=== PATIENT | male | born 1945 | race Caucasian/White ===

== ENCOUNTER 2018-04-01 13:22 | Outpatient (CLI) | payer MEDICARE, OTHER | END 2018-04-01 13:23 | disposition home or self-care (01) | LOC: ULT 13:22 | PROVIDERS: ATTEND Family Medicine | DX: M79.89 Other specified soft tissue disorders (principal); I08.3 Combined rheumatic disorders of mitral, aortic and tricuspid valves; I77.810 Thoracic aortic ectasia | CPT/HCPCS: 93306 ==

== ENCOUNTER 2018-06-15 07:57 | Outpatient (CLI) | payer MEDICARE, OTHER ==
[2018-06-15 08:35] LABS: Estimated GFR-MDRD - POC Greater than 90
[2018-06-15] MEDS ORDERED: Iopamidol 370 76% 100 ML VIAL ONE (09:00)
--- NOTE | 2018-06-15 11:45 | CT ---
CT ABDOMEN WITH AND WITHOUT IV CONTRAST: CT PELVIS WITH AND WITHOUT IV CONTRAST: 06/15/2018 HISTORY: Hematuria. History of pancreatic and renal cyst. COMPARISON: CTA abdomen on 11/05/2016. CT abdomen and pelvis on 05/24/2015. FINDINGS: There is mild dependent bibasilar atelectasis and/or scarring present. Again noted is a hiatal herni a. Multiple hypodense bilateral renal lesions are seen, the majority of which demonstrate fluid atte nuation and are consistent with multiple bilateral renal cysts. The largest cyst is seen within the superior pole left kidney, measuring 4.9 cm, with the largest cyst seen in the superior pole right ki dney, measuring 2.2 cm. There is an increased density exophytic lesion seen in the superior pole lef t kidney, measuring 2.4 cm, which was also seen on prior exam. This demonstrates similar attenuation coefficient on post contrast image, likely related to a hyperdense Bosniak type II renal cystic lesi on. There is a stable, nonobstructing, 3 to 4 mm calculus in the mid portion of the right kidney. No add itional renal or ureteral calculi are seen bilaterally, and there is no evidence of hydronephrosis. No enhancing renal mass is visualized. A subcentimeter, bpw-[id number]-uv-characterize, hypodense lesion is again seen in the posterior segment o f the right hepatic lobe. Again noted is suggestion of a small, approximately 1.1 cm, hypodense, cystic structure in the tail o f the pancreas. This overall stable in appearance and size compared to the study in 2015. The pancr eas otherwise has a normal appearance with atrophy of the majority of the pancreas, similar to prior studies. The bilateral adrenal glands and the urinary bladder demonstrate a normal CT appearance. Vascular calcifications are again seen in the abdominal aorta and involving the iliac arteries. A fat-containing left inguinal canal is present. There is colonic diverticulosis. Opacified small bowel has a normal appearance. Post surgical and degenerative changes are again seen within the lumbar spine, similar to prior studi es, with low density material seen posterior to the level of the laminectomy defects, probably relate d to an area of scarring. No free fluid, fluid collection, or lymphadenopathy is seen in the abdomen or pelvis. IMPRESSION: 1. Stable, nonobstructing right renal calculus. 2. Stable multiple bilateral renal cysts with Bosniak type II renal cystic lesion in the superior po le left kidney. No enhancing renal mass is appreciated. 3. No ureteral calculus or hydronephrosis is present. 4. Again noted is suggestion of a small, approximately 11 mm, hypodense, cystic structure in the marta l of the pancreas, stable in size and appearance compared to the study in 2015. 5. Subcentimeter, sdt-[id number]-[id number]-characterize, hypodense lesion in the right hepatic lobe. 6. Colonic diverticulosis. 7. Hiatal hernia. POS: NIKKY
== END 2018-06-15 07:58 | disposition home or self-care (01) ==
LOC: SCSCT 07:57
PROVIDERS: ATTEND Internal Medicine Gastroenterology
DX: K86.2 Cyst of pancreas (principal); N28.1 Cyst of kidney, acquired; N20.0 Calculus of kidney; K76.9 Liver disease, unspecified; K44.9 Diaphragmatic hernia without obstruction or gangrene; K57.30 Diverticulosis of large intestine without perforation or abscess without bleeding
CPT/HCPCS: 74178; 82565

== ENCOUNTER 2018-07-20 09:15 | Outpatient (CLI) | payer MEDICARE, OTHER ==
--- NOTE | 2018-07-20 14:14 | HP ---
HISTORY OF PRESENT ILLNESS: Mr. Franklyn Childs junior is a very pleasant 73-year-old gentleman who [facility] for evaluation of an ulceration of the left lateral ankle. The patient states that in May of 2017 while cleaning out his garden, he was bitten by a brown recluse spider. He states that he was treated with antibiotics and the wound healed completely. He states that in April of 2018 he developed a lesion in the same area with no history of an insect or spider bite. He states that he was seen by Dr. Macias and treated with Silvadene cream and antibiotics. He states that the wound decreased in size to that of a "pinhead." The patient states that at the beginning of last week, he developed pain of his left lateral ankle followed two days later by warmth in the area. He states that one week ago he was seen by Dr. Macias and at this time, referred to the [facility] for further evaluation and treatment. The patient's medical history significant for venous ablation on the right and on the left by Dr. Tapia. The patient states that he has open toe compression garments that he has been unable to utilize because of a tourniquet effect over the foot and lower leg. PAST MEDICAL HISTORY: 1. Hypertension. 2. Atrial fibrillation. 3. Osteoarthritis. 4. 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 5. Parkinson disease. 6. Benign prostatic hypertrophy. 7. Glaucoma. 8. Melanoma in situ of the back. 9. Coronary artery disease. PAST SURGICAL HISTORY: 1. Coronary artery bypass grafting x2. 2. Appendectomy, remote. 3. Tonsillectomy, remote. 4. Bilateral knee replacement. 5. Herniorrhaphy. 6. Laminectomy/spinal fusion in 2011. 7. Left shoulder surgery. MEDICATIONS: 1. Clonazepam. 2. Finasteride. 3. Azilect. 4. Tamsulosin. 5. Lasix. 6. Eliquis. 7. Aspirin 81 mg. 8. Piroxicam. 9. Mirapex. 10. Carbidopa/levodopa. ALLERGIES: DEMEROL AND OXYCONTIN. SOCIAL HISTORY: Social history is negative for tobacco or EtOH use. FAMILY HISTORY: Family history is significant for coronary artery disease. The patient's father was diagnosed with coronary artery disease. Family history is also significant for diabetes mellitus. The patient's father and brother were both diagnosed with diabetes mellitus. PHYSICAL EXAMINATION: VITAL SIGNS: Temperature 97.4, pulse 76, respirations 20, and blood pressure 123/76. GENERAL: A 73-year-old gentleman sitting on chair in examination room, in no acute distress. HEENT: Normocephalic and atraumatic. NECK: No nuchal rigidity. CHEST: Clear to auscultation. CV: Regular rate and rhythm. ABDOMEN: Soft. EXTREMITIES: A wound of the left lateral ankle is present which measures approximately 0.5 x 0.2 cm. The wound is covered in its entirety by dry, stable eschar. No serous or purulent drainage is associated with the wound. No cellulitis of the left foot or lower leg is appreciated. No maceration of the skin of the left foot or lower leg is appreciated. A dorsalis pedis pulse is easily palpable on the left. Edema of the left foot and lower leg is present on today's exam. ASSESSMENT AND PLAN: 1. Chronic venous hypertension with ulcer and inflammation. No open wound is present on exam today. The patient declines the application of the tvCompass Coban 2 Layer Compression System. I will see Mr. Childs again on 08/18/2018. The patient has been instructed to continue to utilize ROCKY hose. He is to bring his compression garments with him to his next visit on 08/18/2018. 2. Lymphedema tarda. Arrangements will be made for the initiation of in-home lymphedema therapy with a pneumatic pump. The patient understands and is in agreement with the preceding treatment plan. 3. Hypertension. 4. Atrial fibrillation. 5. Osteoarthritis. 6. Multiple squamous cell and basal cell carcinomas. 7. Parkinson disease. 8. Benign prostatic hypertrophy. 9. Glaucoma. 10. Melanoma in situ of the back. 11. Coronary artery disease. Job ID: [id number]
== END 2018-07-20 09:16 | disposition home or self-care (01) ==
LOC: WCC 09:15
PROVIDERS: ATTEND Family Medicine
DX: I87.332 Chronic venous hypertension (idiopathic) with ulcer and inflammation of left lower extremity (principal); L97.329 Non-pressure chronic ulcer of left ankle with unspecified severity; I89.0 Lymphedema, not elsewhere classified; I10 Essential (primary) hypertension; I48.91 Unspecified atrial fibrillation; M19.90 Unspecified osteoarthritis, unspecified site; G20 Parkinson's disease; H40.9 Unspecified glaucoma; N40.0 Benign prostatic hyperplasia without lower urinary tract symptoms; I25.10 Atherosclerotic heart disease of native coronary artery without angina pectoris; C44.91 Basal cell carcinoma of skin, unspecified; D03.9 Melanoma in situ, unspecified
CPT/HCPCS: 99203; G0463

== ENCOUNTER 2018-08-18 14:17 | Outpatient (CLI) | payer MEDICARE, OTHER ==
--- NOTE | 2018-08-18 09:57 | PRG ---
DATE OF SERVICE: 08/18/2018 HISTORY: Mr. Franklyn Childs junior is a very pleasant 73-year-old gentleman, who presents to the [facility] for evaluation of an ulceration of the left lateral ankle. The patient previously stated that in May of 2017, while cleaning out his garden, he was bitten by a brown recluse spider. He stated that he was treated with antibiotics and the wound healed completely. He stated that in April of 2018, he developed a lesion in the same area with no history of an insect or spider bite. He stated that he was seen by Dr. Macias and treated with Silvadene cream and antibiotics. He stated that the wound decreased in size to that of a "pinhead." The patient stated that just prior to being seen in the [facility], he developed pain of his left lateral ankle followed by warmth in the area 2 days later. He stated that 1 week prior to his initial presentation to the [facility], he was seen by Dr. Macias and at this time, referred to the [facility] for further evaluation and treatment. The patient's medical history is significant for venous ablation on the right and on the left by Dr. Tapia. The patient stated that he had been prescribed open toe compression garments that he was unable to utilize because of a tourniquet effect over the foot and lower leg. PHYSICAL EXAMINATION: VITAL SIGNS: Temperature 97.4, pulse 77, respirations 16, blood pressure 138/67. EXTREMITIES: The wound over the left lateral ankle has healed completely. Edema of the right and left lower extremities is present on exam today. Circumferences of the right lower extremity at the ankle, calf, and knee are 27 cm, 35 cm, and 27 cm. Circumferences of the left lower extremity at the ankle, calf, and knee are 29 cm, 34.5 cm, and 27 cm. ASSESSMENT AND PLAN: 1. Lymphedema tarda. The patient has worn compression garments and has been elevating his legs for over 4 weeks with no improvement in his lymphedema. Arrangements will therefore continue for the initiation of in-home lymphedema therapy with a pneumatic pump. 2. Chronic venous hypertension with ulcer and inflammation, as stated above, the wound of the left lateral ankle has healed completely. 3. Hypertension. 4. Atrial fibrillation. 5. Osteoarthritis. 6. Multiple squamous cell and basal cell carcinomas. 7. Parkinson disease. 8. Benign prostatic hypertrophy. 9. Glaucoma. 10. Melanoma in situ of the back. 11. Coronary artery disease. Job ID: [id number]
== END 2018-08-18 14:18 | disposition home or self-care (01) ==
LOC: WCC 14:17
PROVIDERS: ATTEND Family Medicine
DX: I87.332 Chronic venous hypertension (idiopathic) with ulcer and inflammation of left lower extremity (principal); L97.329 Non-pressure chronic ulcer of left ankle with unspecified severity; I89.0 Lymphedema, not elsewhere classified; I48.91 Unspecified atrial fibrillation; M19.90 Unspecified osteoarthritis, unspecified site; G20 Parkinson's disease; I25.10 Atherosclerotic heart disease of native coronary artery without angina pectoris; N40.0 Benign prostatic hyperplasia without lower urinary tract symptoms; H40.9 Unspecified glaucoma; D03.59 Melanoma in situ of other part of trunk; C44.99 Other specified malignant neoplasm of skin, unspecified
CPT/HCPCS: 97139; G0463; 99212

== ENCOUNTER 2018-11-15 17:43 | Inpatient (IN) | payer MEDICARE, OTHER ==
[2018-11-15 18:15] LABS: #Basophils 0.1 thou/uL (0.0-0.2); #Eosinphils 0.1 thou/uL (0.0-0.7); #Lymphocytes 1.2 thou/uL (1.20-3.40); #Monocytes 0.4 thou/uL (0.11-0.59); %Basophils 0.5 % (0.0-1.0); %Eosinophils 1.1 % (0.0-10.0); %Monocytes 3.4 % (0.0-10.0); Hemoglobin 16.6 g/dL (14.0-18.0); Mean Corpuscular HGB CONC 33.5 g/dL (32.0-36.0); Mean Corpuscular Hemoglobin 32.6 pg (27.0-31.0); Mean Corpuscular Volume 97.4 fL (78.0-98.0); Mean Platelet Volume 8.2 fL (7.4-10.4); Platelet Count 162 thou/uL (130-400); RBC Distribution Width 12.2 % (11.5-14.5); White Blood Cell (WBC) Count 11.8 thou/uL (4.8-10.8)
[2018-11-15] MEDS ORDERED: Aspirin Chewable 81 MG TAB ONE (18:15)
[2018-11-15 18:28] LABS: ALT (SGPT) 108 U/L (8-55); AST (SGOT) 390 U/L (5-34); Albumin 4.5 g/dL (3.4-4.8); Alkaline Phosphatase 213 U/L (40-150); Anion Gap 15 mmol/L (10-20); BUN (Urea Nitrogen) 27 mg/dL (8.4-25.7); Bilirubin, Total 2.5 mg/dL (0.2-1.2); Calc. Creatinine Clearance 0 mL/min (70-130); Calcium 9.7 mg/dL (7.8-10.44); Carbon Dioxide 25 mmol/L (23-31); Chloride 104 mmol/L (98-107); Estimated GFR-MDRD 79; Globulin 3.2 g/dL (2.4-3.5); Glucose 130 mg/dL (83-110); Lipase 44 U/L (8-78); Protein, Total 7.7 g/dL (5.8-8.1); Sodium 140 mmol/L (136-145)
[2018-11-15] MEDS ORDERED: Morphine 4 MG/ML VIAL ONE (18:53)
[2018-11-15] MEDS ORDERED: Ondansetron PF 4 MG/2 ML Vial ONE (18:53)
--- NOTE | 2018-11-15 19:02 | RAD ---
EXAM: CHEST ONE VIEW: 11/15/18 HISTORY: Chest pain. Cardiomegaly. Postop midline sternotomy. No confluent pneumonia or overt edema. IMPRESSION: Cardiomegaly. Postop midline sternotomy. Atherosclerosis of the aorta with ectasia. POS: OFF
[2018-11-15 19:47] LABS: Bilirubin Negative (Negative); Blood, Urine Negative (Negative); Clarity Clear (Clear); Glucose, Urine (Dipstick) Negative (Negative); Leukocyte Negative (Negative); Nitrite Negative (Negative); Protein, Urine (Dipstick) Negative (Neg-Trace); Specific Gravity, Urine 1.015 (1.005-1.030)
--- NOTE | 2018-11-15 20:34 | ULT ---
RIGHT UPPER QUADRANT ULTRASOUND: 11/15/18 HISTORY: Epigastric pain and elevated LFTs. Chest pain. The liver echogenicity is slightly coarse. The gallbladder wall is minimally thickened at 0.5 cm. The re is evidence for gallbladder sludge without evidence for overt gallstone. Negative Bejarano's sign. S everal small right renal cysts. Common bile duct 0.5 cm. Pancreas is mostly obscured. No intrahepatic ductal dilatation. IMPRESSION: Slightly coarse liver echogenicity. Gallbladder sludge with thickened gallbladder wall without overt gallstones. Negative Bejarano's sign. If patient has persistent or worsening symptoms referable to the gallbladder, nonemergent follow-up hepatobiliary nuclear medicine scan might give additional informa tion. POS: RRE
--- NOTE | 2018-11-15 20:52 | CT ---
NONCONTRAST CT ABDOMEN AND PELVIS: 11/15/18 HISTORY: Chest pain and abdominal pain. COMPARISON: 06/15/18. FINDINGS: Mild chronic bibasilar lung changes are present. No pleural effusion is noted. The heart remains enlarged. Vascular calcifications are seen in the abdominal aorta and involving the iliac arteries. 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 There is focal ectasia of the infrarenal abdominal aorta also similar to prior exam. A hiatal hernia is again present with the fundus of the stomach above the level of the hemidiaphragms . There are multiple hypodense and hyperdense renal cystic lesions seen, overall similar to the prior s tudy, likely related to combination of renal cysts and Bosniak type II renal cystic lesions. No renal or ureteral calculi are seen bilaterally. Urinary bladder is incompletely distended but otherwise gr ossly normal in appearance. The liver, spleen, and bilateral adrenal glands demonstrate a grossly normal, nonenhanced CT appearan ce. The pancreas is fatty replaced. Again noted is a small hypodense lesion in the tail of the pancreas s table when compared to a study in 2017 as well. Colonic diverticulosis is present. Small amount of retained fecal material seen throughout the colon. Postsurgical and degenerative changes of the lumbar spine are again seen. Low density material again seen posterior to the level of the laminectomy defects which could be related to areas of scarring and/or possibly fluid, but this is similar dating back to study in 2017. Lack of intravenous contrast does limit sensitivity for evaluation of the parenchymal organs; however , there has been no significant interval change compared to prior exams. IMPRESSION: 1. No acute findings are seen on this nonenhanced CT scan of the abdomen and pelvis. 2. Cardiomegaly. 3. Stable hiatal hernia. 4. 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 5. Stable hypodense and hyperdense Bosniak type II cystic renal lesions in each kidney. 6. Stable hypodense lesion pancreatic tail. POS: OFF
[2018-11-15] MEDS ORDERED: hydrALAZINE 20 MG/ML VIAL SLOW IVP PRN (21:58)
[2018-11-15] MEDS ORDERED: Morphine 4 MG/ML VIAL SLOW IVP PRN (21:58)
[2018-11-15] MEDS ORDERED: Ondansetron PF 4 MG/2 ML Vial IVP PRN (21:58)
[2018-11-15] MEDS ORDERED: Morphine 2 MG/ML SYRINGE SLOW IVP PRN (21:58)
[2018-11-15] MEDS ORDERED: Ondansetron ODT 4 MG TAB PO PRN (21:58)
[2018-11-15] MEDS ORDERED: Acetaminophen 1,000 MG in Premix Bag 1 BAG IVPB PRN (22:01)
[2018-11-15] MEDS ORDERED: Ketorolac Tromethamine 30 MG/ML VIAL IVP PRN (22:01)
[2018-11-15] MEDS ORDERED: traMADol HCl 50 MG TAB PO PRN (22:03)
[2018-11-15] MEDS ORDERED: Lactated Ringer's 1,000 ML IV SCH (22:15)
[2018-11-15] MEDS ORDERED: Dextrose 50% Abboject 50 ML SYRINGE SLOW IVP PRN (22:29)
[2018-11-15] MEDS ORDERED: Dextrose 5% in Water 1,000 ML IV PRN (22:29)
[2018-11-15] MEDS ORDERED: HumaLOG 300 UNITS/3 ML VIAL SC PRN (22:29)
[2018-11-15 22:58] VITALS: BMI 28.8
[2018-11-15] MEDS ORDERED: Lisinopril 10 MG TAB PO SCH (23:15)
[2018-11-16] MEDS ORDERED: Tamsulosin HCl 0.4 MG CAP PO SCH ×2 (00:15→21:00)
[2018-11-16] MEDS ORDERED: Carbidopa/Levodopa 25-100 mg Tablet PO SCH (00:15)
[2018-11-16] MEDS ORDERED: Famotidine 20 MG TAB PO SCH (00:15)
--- NOTE | 2018-11-16 00:49 | HP ---
HISTORY OF PRESENT ILLNESS: Franklyn Kohler Junior is a 73-year-old male patient, seen in [facility] evaluated by Dr. Bo. The patient presented complaining of pain in his left lower abdomen, localizing to his central abdomen and later had some discomfort in his upper right abdomen. He states he received morphine in the emergency room at [facility], and by the time he received the morphine, the pain was almost gone. He had a similar episode several months ago. He had a colonoscopy in 2011 he recalls. He is followed by Dr. Tapia for atrial fibrillation. He has had a coronary artery bypass grafting, 4 vessel in 1993, saw Dr. Tapia's nurse practitioner last week and saw Dr. Tapia in May. He recalls having an echocardiogram in May. He denies any cardiac symptomatology. He has atrial fibrillation, rate controlled. He has never had an ablation. ALLERGIES: NONE. SOCIAL HISTORY: Tobacco, none. Alcohol, none. MEDICATIONS: 1. Prilosec daily. 2. Feldene 20 mg a day. 3. Lisinopril 10 mg a day. 4. Eliquis 5 mg a day, last dose this morning. 5. Lipitor 40 mg a day. 6. Flomax 0.4 mg a day. 7. Finasteride 5 mg a day. 8. Carbidopa/levodopa 25/100 mg a day. 9. Azilect 1 mg a day. 10. Lasix 40 mg a day. 11. Cosopt ophthalmic drops. 12. once a day, 0.25 mg oral. 13. Zetia 10 mg a day. PAST SURGICAL HISTORY: Coronary artery bypass graft in 1993. He saw Dr[address] Tapia in May 2018. He had an echocardiogram last year. He does not recall having a recent cardiac stress test. He saw Dr. Tapia's nurse practitioner a week ago, had an echocardiogram last year. He was told a week ago that everything seemed to be fine. He is asymptomatic from a cardiac standpoint. Total knee replacement, bilateral left shoulder surgery, right inguinal hernia repair, appendectomy, tonsillectomy, colonoscopy tells in 2010. PAST MEDICAL HISTORY: Parkinson's, type 2 diabetes mellitus, hypertension, elevated cholesterol, coronary artery disease, atrial fibrillation on Eliquis. REVIEW OF SYSTEMS: Ten-point noncontributory except as noted above. PHYSICAL EXAMINATION: VITAL SIGNS: Weight 99 kg, blood pressure 124/83, respirations 22. HEAD, EARS, EYES, NOSE, AND THROAT: Unremarkable. LUNGS: Clear to auscultation. CARDIAC: Irregularly irregular, controlled rate. ABDOMEN: Soft, nontender, obese, and protuberant. No masses. No hernias. EXTREMITIES: Unremarkable. No ankle edema. LABORATORY DATA: Sodium 140, potassium 4.0, BUN 27, creatinine 0.94, bilirubin 2.5, AST 390, ALT 108, alkaline phosphatase 213. The patient's transaminases are elevated today and this is unusual for him, in the past they have not been elevated. His bilirubin, however, has been elevated years past and never to the level of 2.5, but it has been elevated in the past to 1.6, 1.8, 1.4. Coagulation studies; D-dimer normal. ASSESSMENT AND PLAN: 1. Abdominal pain, now resolved. He is nontender and nonpainful. At this point, I have discussed with him the fact that he has gallbladder sludge and his liver chemistries are elevated, but his bile ducts are of normal caliber. I have told him that it would be reasonable to consider laparoscopic cholecystectomy, but his symptoms are somewhat atypical and etiology of his liver function tests elevated is uncertain. At this time, he wishes to avoid surgery. I do not think he needs intravenous antibiotics. We will resume his diabetic diet, observe him tonight. Recheck his liver function test tomorrow. I asked the medical services to see him. If he does well overnight and he is not having problems, he could be discharged home in the morning. 2. Diabetes mellitus. 3. Hypertension. 4. Elevated cholesterol. 5. Coronary artery disease. 6. Atrial fibrillation, on Eliquis. We will hold his Eliquis for now, but resume it if he does well overnight. If he does go home tomorrow and he develops problems as an outpatient, likely could visit my office and we could arrange cholecystectomy at a later date. Job ID: [id number]
[2018-11-16 06:24] LABS: #Eosinphils 0.3 thou/uL (0.0-0.7); #Lymphocytes 1.8 thou/uL (1.20-3.40); #Monocytes 0.9 thou/uL (0.11-0.59); #Neutrophils 13.5 thou/uL (1.40-6.50); %Basophils 0.3 % (0.0-1.0); %Eosinophils 1.7 % (0.0-10.0); %Lymphocytes 10.8 % (21.0-51.0); %Monocytes 5.6 % (0.0-10.0); %Neutrophils 81.6 % (42.0-75.0); Mean Corpuscular HGB CONC 33.7 g/dL (32.0-36.0); Mean Corpuscular Hemoglobin 33.5 pg (27.0-31.0); Mean Corpuscular Volume 99.5 fL (78.0-98.0); Mean Platelet Volume 7.8 fL (7.4-10.4); Platelet Count 150 thou/uL (130-400); RBC Distribution Width 12.1 % (11.5-14.5); Red Blood Cell (RBC) Count 4.47 mill/uL (4.70-6.10); White Blood Cell (WBC) Count 16.5 thou/uL (4.8-10.8)
[2018-11-16 06:45] LABS: ALT (SGPT) 43 U/L (8-55); AST (SGOT) 265 U/L (5-34); Albumin 3.7 g/dL (3.4-4.8); Alkaline Phosphatase 205 U/L (40-150); Anion Gap 12 mmol/L (10-20); BUN (Urea Nitrogen) 22 mg/dL (8.4-25.7); Bilirubin, Total 4.7 mg/dL (0.2-1.2); Calc. Creatinine Clearance 117 mL/min (70-130); Calcium 9.1 mg/dL (7.8-10.44); Carbon Dioxide 24 mmol/L (23-31); Chloride 106 mmol/L (98-107); Estimated GFR-MDRD Greater than 90; Globulin 2.5 g/dL (2.4-3.5); Glucose 103 mg/dL (83-110); Potassium 3.7 mmol/L (3.5-5.1); Protein, Total 6.2 g/dL (5.8-8.1); Sodium 138 mmol/L (136-145)
[2018-11-16] MEDS ORDERED: Furosemide 40 MG TAB PO SCH (07:30)
[2018-11-16] MEDS: Famotidine 20 MG TAB PO SCH ×2 (08:00→20:52)
[2018-11-16] MEDS: metFORMIN 500 MG TAB PO SCH ×2 (08:00→17:08)
[2018-11-16] MEDS: Polyethylene Glycol 3350 17 GM Packet PO SCH (08:01)
[2018-11-16] MEDS: Pantoprazole 40 MG VIAL IVP SCH (08:01)
[2018-11-16] MEDS: Carbidopa/Levodopa 25-100 mg Tablet PO SCH ×4 (08:01→20:51)
[2018-11-16] MEDS ORDERED: Ezetimibe 10 MG TAB PO SCH (09:00)
--- NOTE | 2018-11-16 10:38 | PRG ---
DATE OF SERVICE: 11/16/2018 SUBJECTIVE: Mr. Childs did not receive his Klonopin last night, did not sleep well. In addition, he complains of epigastric pain after eating breakfast this morning. He is slightly tender in the epigastrium and right upper quadrant. His bilirubin is slightly more elevated to 4.7, up from 2.5. His AST is diminished to 265, ALT diminished to 43. His white blood cell count, however, has increased to 16.5. PHYSICAL EXAMINATION: LUNGS: Clear to auscultation. CARDIAC: Irregularly irregular, controlled rate. ABDOMEN: Obese, soft. Tenderness in the epigastrium and right upper quadrant with mild guarding. EXTREMITIES: Unremarkable. ASSESSMENT AND PLAN: 1. Gallbladder sludge, cholecystitis. Because of his increased pain after eating and has tenderness and elevated liver function tests, I would recommend laparoscopic video cholecystectomy tomorrow. We would place him back on Levaquin. Ask Cardiology to see him for preoperative evaluation with his known coronary artery disease. I think he is stable for laparoscopic cholecystectomy, but he has seen Dr. Tapia recently and we will get his opinion. The patient understands the risks, benefits, and consents. 2. Diabetes mellitus. 3. Hypertension. 4. Obesity. 5. Atrial fibrillation, controlled rate. Job ID: [id number]
--- NOTE | 2018-11-16 20:16 | CON ---
DATE OF CONSULTATION: 11/16/2018 PRIMARY ASSISTANT GOLF COURSE SUPERINTENDENT: Jarad Tapia MD REASON FOR CONSULTATION: Preoperative evaluation. HISTORY OF PRESENT ILLNESS: Mr. Childs is a pleasant 73-year-old white gentleman, who comes to the hospital for abdominal pain. He was evaluated and diagnosed with acute cholecystitis. Initially, he was thought to be able to be treated medically as he is on Eliquis for stroke prophylaxis for AFib. He was started on antibiotics, but continues to be very symptomatic with any meal. He gets abdominal pain. His LFTs are increasing as well as his white count continues to increase. Secondary to this, decision was made to be more aggressive and just do a laparoscopic cholecystectomy. Cardiology is being consulted for preoperative evaluation as he has a history of coronary artery disease. He denies any chest pain, tightness, pressure. No shortness of breath. He has been followed by Dr. Tapia for many years. He had his bypass in 1993. He has not had any problems since. His last echocardiogram was in March of last year. Less than a year ago and he had a normal EF. He has not felt any significant change in his symptoms as far as the cardiac symptoms are concerned. PAST MEDICAL HISTORY: 1. Coronary artery disease, status post CABG in 1993. 2. Hypertension. 3. Parkinson disease. 4. Hyperlipidemia. 5. GERD. 6. Chronic atrial fibrillation. 7. History of skin cancer. 8. Glaucoma. PAST SURGICAL HISTORY: 1. Left knee surgery. 2. Bilateral total knee replacement. 3. Umbilical hernia repair. 4. Left shoulder surgery. 5. Glaucoma procedures. 6. Tonsillectomy. 7. Appendectomy. 8. Back surgery x2. 9. RFA of the left SSV and RFA of the right SSV. OUTPATIENT MEDICATIONS: Include: 1. Clonazepam 2 mg q.h.s. 2. Tamsulosin 0.4 b.i.d. 3. Azilect 1 mg a day. 4. Pramipexole. 5. Piroxicam. 6. Omeprazole 40 mg a day. 7. Lisinopril 10 mg a day. 8. Furosemide 40 mg a day. 9. Finasteride. 10. Zetia 10 mg a day. 11. Dorzolamide ophthalmic solution. 12. Carbidopa/levodopa. 13. Lipitor 40 mg a day. 14. Aspirin 81 a day. 15. Eliquis 5 mg b.i.d., last dose was yesterday evening. ALLERGIES: MEPERIDINE AND OXYCODONE. FAMILY HISTORY: Noncontributory. SOCIAL HISTORY: No alcohol, tobacco, or drugs. REVIEW OF SYSTEMS: A 12-point review of systems was done and was all negative unless stated in history of present illness. PHYSICAL EXAMINATION: VITAL SIGNS: Temperature 98.0, pulse 86, respiratory rate 16, saturation 98% on room air, and blood pressure 155/90. GENERAL: Awake, alert, and oriented x3, in no distress. HEENT: Normocephalic and atraumatic. NECK: Supple. LUNGS: Clear. CARDIOVASCULAR: S1 and S2. No S3 or S4. No murmurs. ABDOMEN: Soft. Positive bowel sounds. EXTREMITIES: No edema. SKIN: Warm and dry. LABORATORY DATA: Laboratory work was reviewed. CBC with a white count of 11, up to 16; hemoglobin of 16; hematocrit of 49; and platelet count of 162. Coags, D-dimer is 0.33. Chemistries unremarkable except for total bilirubin of 4.7, which is coming up from 2.5; AST was 265; ALT is normal; alkaline phosphatase at 205. BNP was 104. Albumin of 3.7. Lipase was normal at 44. UA is 2.0 urobilinogen, otherwise negative. EKG was unremarkable. Echocardiogram done in March 2018 showed an EF of 50% to 55% with mild aortic regurgitation, mild MR, mild TR, mild PI, and mildly dilated aortic root. ASSESSMENT AND PLAN: 1. Preoperative evaluation. Mr. Childs is completely asymptomatic from the cardiac perspective. He has been followed by many years by Dr. Tapia and has remained stable symptom valentin. Currently, he would be intermediate risk for an intermediate risk procedure. He is aware that this does not guarantee that he will not have an myocardial infarction during the procedure. However, there are no other interventions that I would think would be needed to optimize him before surgery. He is also having worsening LFTs and worsening symptoms, so his gallbladder probably needs to come out sooner rather than later. I would think that he is a suitable candidate for procedure at this time. He has already been off Eliquis for 24 hours. If the surgery is done tomorrow, he will be out of Eliquis about 36 hours, which should be reasonable for this type of surgery. 2. Would recommend restarting the Eliquis after surgery once it is deemed safe from the surgical perspective. Thank you for letting me to participate in the care of your patient. Dr. Tapia, his primary gl accountant, will follow up in the morning. Job ID: [id number]
[2018-11-16] MEDS: clonazePAM 1 MG TAB PO SCH (20:52)
[2018-11-16] MEDS: DorzolamidE/Timolol 2%/0.5% Ophth Soln 10 ml Bottle EA EYE SCH (20:52)
[2018-11-16] MEDS: Tamsulosin HCl 0.4 MG CAP PO SCH (20:53)
[2018-11-16] MEDS: Pramipexole Di-HCl 0.25 MG TAB PO SCH (20:53)
[2018-11-16] MEDS ORDERED: Enoxaparin Sodium 40 MG/0.4 ML SYRINGE SC SCH (21:00)
[2018-11-16] MEDS: metroNIDAZOLE 500 MG in Premix Bag 1 BAG IVPB SCH (21:30)
[2018-11-17] MEDS: metroNIDAZOLE 500 MG in Premix Bag 1 BAG IVPB SCH ×3 (05:04→22:07)
[2018-11-17] MEDS ORDERED: Fentanyl 100 MCG/2 ML VIAL ONE (06:20)
[2018-11-17] MEDS ORDERED: Lidocaine 2% Jelly 5 ML TUBE ONE (06:21)
[2018-11-17] MEDS ORDERED: Bupivacaine HCl 0.5%/Epinephrine 1:200,000/PF 30 ml Vial ONE (06:36)
[2018-11-17] MEDS ORDERED: Iothalamate Meglumine 60% 50 ML VIAL FS ONE ×2 (06:47→08:23)
[2018-11-17] MEDS ORDERED: Levofloxacin 500 mg/D5W 100 ml Premix Bag ONE (07:23)
[2018-11-17] MEDS ORDERED: Indomethacin 50 MG SUPP ONE (08:23)
[2018-11-17] MEDS ORDERED: Ibuprofen 600 MG TAB PO PRN (08:27)
[2018-11-17] MEDS ORDERED: traMADol HCl 50 MG TAB PO PRN (08:27)
--- NOTE | 2018-11-17 08:44 | RAD ---
Cholangiogram in surgery HISTORY: Cholecystitis. FINDINGS: Intraoperative fluoroscopy was provided for cholangiogram as performed by Dr. Crockett. Spot fluoroscopic images show contrast opacification of a nondilated common duct. Rounded filling defect at the central common duct is shown on one image and may represent an impacted stone. Contrast has no t shown to reliably extended into the duodenum. Pancreatic duct is somewhat distended. Oval filling defect at the level of the pancreatic head may re present an air bubble or stone. There are also subtle filling defects within the upper common bile duct just distal to the bifurcation. Again, these may represent stones or air bubbles Fluoroscopy time 27 seconds.
[2018-11-17] MEDS ORDERED: PIROXICAM 20 MG PO SCH (09:00)
[2018-11-17] MEDS ORDERED: RASAGILINE PO SCH (09:00)
[2018-11-17] MEDS: metFORMIN 500 MG TAB PO SCH ×2 (09:04→15:09)
[2018-11-17] MEDS: Ezetimibe 10 MG TAB PO SCH (09:05)
[2018-11-17] MEDS: Carbidopa/Levodopa 25-100 mg Tablet PO SCH ×3 (09:05→20:40)
[2018-11-17] MEDS: Famotidine 20 MG TAB PO SCH ×3 (09:05→20:41)
[2018-11-17] MEDS: DorzolamidE/Timolol 2%/0.5% Ophth Soln 10 ml Bottle EA EYE SCH ×2 (09:05→20:41)
[2018-11-17] MEDS: Atorvastatin Calcium 40 MG TAB PO SCH (09:05)
[2018-11-17] MEDS: Aspirin 81 mg Enteric Coated Tablet PO SCH (09:05)
[2018-11-17] MEDS: Finasteride 5 MG TAB PO SCH (09:05)
[2018-11-17] MEDS: Furosemide 40 MG TAB PO SCH (09:06)
[2018-11-17] MEDS: Lisinopril 10 MG TAB PO SCH (09:06)
[2018-11-17] MEDS: Polyethylene Glycol 3350 17 GM Packet PO SCH (09:06)
[2018-11-17] MEDS: Tamsulosin HCl 0.4 MG CAP PO SCH ×2 (09:07→20:41)
[2018-11-17] MEDS ORDERED: SUGAMMADEX SODIUM 200 MG/2 ML VIAL ONE (09:31)
[2018-11-17] MEDS ORDERED: Ondansetron HCl/PF 4 MG/2 ML Vial IVP PRN (09:35)
[2018-11-17] MEDS ORDERED: Promethazine HCl 25 MG/ML VIAL SLOW IVP PRN (09:35)
[2018-11-17] MEDS ORDERED: Promethazine HCl 25 MG/ML VIAL IM PRN (09:35)
[2018-11-17] MEDS ORDERED: hydrALAZINE 20 MG/ML VIAL ONE (09:54)
[2018-11-17] MEDS: Lactated Ringer's 1,000 ML IV SCH ×2 (10:35→17:45)
[2018-11-17] MEDS: Pantoprazole 40 MG VIAL IVP SCH (10:35)
[2018-11-17] MEDS: Acetaminophen 500 MG TAB PO PRN ×2 (10:59→22:06)
--- NOTE | 2018-11-17 11:33 | CON ---
DATE OF CONSULTATION: 11/16/2018 REASON FOR CONSULTATION: Abdominal pain. HISTORY OF PRESENT ILLNESS: Mr. Childs is a 73-year-old male who presented to the ER last evening with abdominal pain. The pain initially started in the left abdomen, but soon moved to his entire abdomen. He did not have any nausea or vomiting. After being given morphine, the pain did improve. CT did not show any acute process. Ultrasound showed thickened gallbladder wall without any pericholecystic fluid in addition to gallbladder sludge. The patient had elevation of his liver enzymes and bilirubin. Common duct is 5 mm on ultrasound. He was relatively pain-free overnight, but developed severe epigastric pain after eating breakfast this morning, required morphine. Currently, the pain has subsided. He does have history of coronary artery disease, but reports having had echocardiogram done a year or two ago that showed EF of 50% to 55%. He does not have any history of heart failure. The patient has had upper endoscopy and colonoscopy by Dr. Boucher which result I do not know at this time. PAST MEDICAL HISTORY: 1. Coronary artery disease, status post bypass surgery in 1993. 2. Benign prostatic hypertrophy. 3. Hypertension. 4. Hyperlipidemia. 5. Status post inguinal hernia repair, appendectomy, and shoulder surgery. 6. Status post knee replacement. 7. Parkinson's. 8. Atrial fibrillation, Eliquis last dose 2 days ago. SOCIAL HISTORY: The patient has no tobacco or alcohol usage. FAMILY HISTORY: Negative for any known GI problem, liver disease, or GI malignancy. MEDICATIONS: At home, include: 1. Clonazepam. 2. Azilect. 3. Pramipexole. 4. Piroxicam. 5. Omeprazole. 6. Lisinopril. 7. Lasix. 8. Finasteride. 9. Zetia. 10. Carbidopa/levodopa. 11. Lipitor. 12. Aspirin. 13. Eliquis. REVIEW OF SYSTEMS: Ten-point review of systems did not show any other pertinent positives or negatives. PHYSICAL EXAMINATION: VITAL SIGNS: Temperature is 98.0, blood pressure 155/90, pulse of 86. GENERAL: He is alert, no distress. HEENT: Shows anicteric sclerae. Oropharynx clear and moist. NECK: Supple. CV: Shows normal S1, S2. Regular rate and rhythm. CHEST: Shows breath sounds. ABDOMEN: Mildly protuberant, but no distention. No tympany. No elicited tenderness. He has active bowel sounds. No bruit. Organomegaly is difficult to assess secondary to size. EXTREMITIES: Exam shows no edema. LABORATORY DATA: WBC 16.5, hemoglobin 15.0, and platelet count of 150. Electrolytes within normal range. Creatinine is 0.81. Bilirubin 4.7, up from 2.5 yesterday. AST is 265, ALT of 43, alkaline phosphatase 205, lipase of 44. DIAGNOSTIC STUDIES: Abdominal pelvic CT did not show any acute finding, no inflammatory changes or evidence of bowel obstruction. Ultrasound showed gallbladder sludge with thickened gallbladder wall. CBD is 5 mm. No pericholecystic fluid. ASSESSMENT: The patient with fairly diffuse abdominal pain with radiation upward yesterday that had resolved, presented with recurrent severe epigastric pain following breakfast this morning. Gallbladder ultrasound shows sludge and thickened gallbladder wall without any pericholecystic fluid. However, his bilirubin, liver enzyme, and alkaline phosphatase have been acutely elevated over baseline before. Cholecystitis is a concern. RECOMMENDATIONS: 1. I think it is reasonable to proceed with laparoscopic cholecystectomy as I do not think patient has any other liver condition such as drug-induced hepatitis or congestive hepatopathy as a cause of his abnormal liver panel. 2. No other diagnostic tests from GI standpoint. Job ID: [id number]
--- NOTE | 2018-11-17 16:34 | OP ---
DATE OF PROCEDURE: 11/15/2018 PREOPERATIVE DIAGNOSES: Cholecystitis, cholelithiasis, normal bile duct caliber, chronically elevated liver function tests, but worse on this occasion. POSTOPERATIVE DIAGNOSES: Cholecystitis, cholelithiasis, choledocholithiasis. PROCEDURE PERFORMED: Laparoscopic video cholecystectomy, fluoroscopy use less than 10 minutes, positive intraoperative cholangiograms without filling of the duodenum and a meniscus sign obstructing the distal bile duct. Note, Dr. Hamlin notified and will perform an endoscopic retrograde cholangiopancreatography under same anesthesia this morning. ANESTHESIA: General anesthesia with local 0.5% Marcaine with epinephrine 30 mL. DESCRIPTION OF PROCEDURE: The patient was taken to the operating room where under general anesthesia, abdomen was clipped of hair, prepared with ChloraPrep and draped in routine fashion. Local anesthetic was infiltrated in the skin and subcutaneous tissue about each port site. An infraumbilical incision was made. Pneumoperitoneum to 15 mmHg obtained with a Veress needle, replaced with a 5 port, and laparoscope inserted. Right subxiphoid incision was made and an 11 port placed. Right subcostal incision was made at midclavicular entrance line and the 5 port was placed. Liver appeared to be normal. Fundus of the gallbladder was grasped at the cephalad. Omental adhesions were taken down from the gallbladder body using cautery for hemostasis. The infundibulum was grasped at the lateral. The cystic artery and duct were dissected free. Critical view obtained. Cystic artery doubly clipped proximally. Cystic duct singly clipped on the gallbladder side. Opening was made in the cystic duct. Cholangiocatheter was inserted and cholangiogram was obtained. Using fluoroscopy, we revealed absence of drainage through the duodenum with obstruction of the distal bile duct with a meniscus sign. The bile duct seemed to be dilated contrary to preoperative ultrasound and CAT scan. Dr. Hamlin was notified. I contacted the daughter per telephone and explained the risks of ERCP, bleeding, infection, reoperation, pancreatitis, blood transfusions, etc., bowel perforation and she consents, and we will proceed with ERCP with Dr. Hamlin under the same anesthetic. The cystic artery and duct doubly clipped proximally and divided. Gallbladder was dissected free from liver bed obtaining good hemostasis prior to division of the final peritoneal attachments. Gallbladder and contents removed and submitted to Pathology. Good hemostasis was obtained with cautery because it seems that the patient was on Eliquis, held for 2 days preoperatively and fatty liver. Nimisha was placed in the liver bed. Irrigant and pneumoperitoneum evacuated. All instruments were removed and all skin incisions were approximated with interrupted subdermal 4-0 Monocryl and Volin glue applied. Job ID: [id number]
--- NOTE | 2018-11-17 16:41 | OP ---
DATE OF PROCEDURE: 11/17/2018 ENVIRONMENT ARTIST SURGEON: None. PROCEDURE PERFORMED: Endoscopic retrograde cholangiopancreatography with biliary sphincterotomy and stone extraction. INDICATION: Choledocholithiasis, demonstrated on positive intraoperative cholangiogram during cholecystectomy earlier today. The patient has elevated LFTs as well. MEDICATIONS: 1. See Anesthesia record. 2. Indomethacin 100 mg per rectum. FINDINGS: After discussion of the risks, benefits, and alternatives of the procedure, informed consent was obtained over the phone from the patient's family member, and verified. The patient was brought from the operating room to the endoscopy room and placed in a semiprone position on the fluoroscopy table. He was already intubated and under general anesthesia. Time-out was performed before the procedure started. A Pentax adult side-viewing duodenoscope was advanced beyond the mouth, esophagus, and stomach and into the second portion of the duodenum. A normal ampulla was brought into view using a triple-lumen dome-tip sphincterotome and a 0.035 guidewire, I was able to selectively cannulate the common bile duct. Cannulation was only able to be accomplished with the scope in the long position. The guidewire was passed up into the right intrahepatic system. Fluoroscopy demonstrated contrast throughout a mildly dilated common bile duct and a single filling defect in the distal common bile duct consistent with cholangiogram findings in the operating room. There was no need to inject more contrast into the bile duct to demonstrate this. At this point, I performed a biliary sphincterotomy. Following sphincterotomy, the sphincterotome was exchanged for a 9 to 12 mm extraction balloon. Multiple passes were made with the balloon partially and fully inflated. In this fashion, I was able to extract a large soft stone from the distal common bile duct, which fragmented into multiple pieces on extraction. All stone fragments were removed. Occlusion cholangiogram then demonstrated no persistence of any filling defects in the common bile duct as well as decrease in the caliber of the common bile duct to normal. At this point, a one final sweep was performed, to sweep out excess contrast. The working apparatus and endoscope were then both completely withdrawn suctioning out excess air and fluid. Postprocedure fluoroscopic images demonstrated no retroperitoneal or subdiaphragmatic free air. The procedure was then complete. The patient tolerated the procedure well. There were no immediate postprocedure complications. IMPRESSION: Choledocholithiasis, now status post successful endoscopic retrograde cholangiopancreatography with biliary sphincterotomy and balloon extraction of large soft distal common bile duct stone and stone fragments. RECOMMENDATIONS: 1. Dietary advancement per the Surgical Service. 2. Monitor for any potential post ERCP complications including pancreatitis. Please call anytime with questions or concerns. Job ID: [id number]
[2018-11-17] MEDS: clonazePAM 1 MG TAB PO SCH (20:40)
[2018-11-17] MEDS: Pramipexole Di-HCl 0.25 MG TAB PO SCH (20:41)
--- NOTE | 2018-11-17 21:38 | PDOC.PN ---
- Subjective Encounter Start Date: 11/17/18 Encounter Start Time: 12:30 Subjective: pt up in bed complains of mild abdomen pain - Objective Vital Signs & Weight: Vital Signs (12 hours) Temp Pulse Resp BP Pulse Ox 11/17/18 19:29 97.3 F L 75 16 107/68 99 Weight Weight 218 lb 4 oz I&O: 11/16/18 11/17/18 11/18/18 06:59 06:59 06:59 Intake Total 480 1490 Balance 480 1490 Result Diagrams: 11/16/18 06:03 11/16/18 06:03 Additional Labs: Accuchecks 11/17/18 11/17/18 11/17/18 19:34 17:04 11:59 POC Glucose 142 H 136 H 130 H 11/17/18 05:50 POC Glucose 93 Phys Exam - Physical Examination Neck: no nodes, no JVD, supple, full ROM Respiratory: no wheezing, no rales, no rhonchi, wheezing present, clear to auscultation bilateral Cardiovascular: RRR, no significant murmur, no rub, gallop, irregular Gastrointestinal: soft, positive bowel sounds x3 sugical incision Dx/Plan (1) Acute cholecystitis Code(s): K81.0 - ACUTE CHOLECYSTITIS Status: Acute (2) Parkinson disease Code(s): G20 - PARKINSON'S DISEASE Status: Acute (3) HTN (hypertension) Code(s): I10 - ESSENTIAL (PRIMARY) HYPERTENSION Status: Acute - Plan s/p cholecystectomy -: home meds restarted, recommend to continue iv fluids for now due to -: elevated bili. If his bili improved in am will stop fluids * . Review of Systems - Review of Systems Cardiovascular: negative: chest pain, palpitations, orthopnea, paroxysmal nocturnal dyspnea, edema, light headedness, other Gastrointestinal: Abdominal Pain Genitourinary: negative: Dysuria, Frequency, Incontinence, Hematuria, Retention , Other - Medications/Allergies Allergies/Adverse Reactions: Allergies Allergy/AdvReac Type Severity Reaction Status Date / Time meperidine [From Demerol] Allergy Verified 11/15/18 22:13 oxycodone [From OxyContin] Allergy Verified 11/15/18 22:13 Medications: Current Medications Acetaminophen (Tylenol) 1,000 mg PO Q6H PRN PRN Reason: Mild Pain (1-3) Last Admin: 11/17/18 10:59 Dose: 1,000 mg Albuterol/Ipratropium (Duoneb) 3 ml NEB Q4H PRN PRN Reason: Wheezing Aspirin (Ecotrin) 81 mg PO DAILY [facility] Last Admin: 11/17/18 09:05 Dose: Not Given Atorvastatin Calcium (Lipitor) 40 mg PO DAILY [facility] Last Admin: 11/17/18 09:05 Dose: Not Given Carbidopa/Levodopa (Sinemet 25-100) 3 tab PO TID [facility] Last Admin: 11/17/18 20:40 Dose: 3 tab Clonazepam (Klonopin) 2 mg PO HS [facility] Last Admin: 11/17/18 20:40 Dose: 2 mg Dextrose/Water (Dextrose 50%) 25 gm SLOW IVP PRN PRN PRN Reason: Hypoglycemia Dorzolamide/Timolol (Cosopt 2-0.5% Ophth Soln) 1 drop EA EYE BID [facility] Last Admin: 11/17/18 20:41 Dose: 1 drop Ezetimibe (Zetia) 10 mg PO DAILY [facility] Last Admin: 11/17/18 09:05 Dose: Not Given Famotidine (Pepcid) 20 mg PO BID [facility] Last Admin: 11/17/18 20:41 Dose: 20 mg Finasteride (Proscar) 5 mg PO DAILY [facility] Last Admin: 11/17/18 09:05 Dose: Not Given Furosemide (Lasix) 40 mg PO DAILY [facility] Last Admin: 11/17/18 09:06 Dose: Not Given Glucagon (Glucagon) 1 mg IM PRN PRN PRN Reason: Hypoglycemia Hydralazine HCl (Apresoline) 10 mg SLOW IVP Q4H PRN PRN Reason: SBP > 170 or DBP > 100 Dextrose/Water (D5w) 1,000 mls @ 0 mls/hr IV .Q0M PRN PRN Reason: Hypoglycemia Lactated Ringer's (Lactated Ringer's) 1,000 mls @ 100 mls/hr IV .Q10H [facility] Last Admin: 11/17/18 17:45 Dose: Not Given Levofloxacin 750 mg/ Device 150 mls @ 100 mls/hr IVPB Q24HR [facility] Last Admin: 11/17/18 10:35 Dose: 150 mls Metronidazole 500 mg/ Device 100 mls @ 100 mls/hr IVPB Q8HR [facility] Last Admin: 11/17/18 12:36 Dose: 100 mls Ibuprofen (Motrin) 600 mg PO Q6H PRN PRN Reason: Pain Insulin Human Lispro (Humalog) 0 units SC .MODERATE SLIDING SC PRN PRN Reason: Moderate Correctional Scale Ketorolac Tromethamine (Toradol) 15 mg IVP Q6H PRN PRN Reason: Pain Stop: 11/20/18 22:02 Lisinopril (Zestril) 10 mg PO DAILY [facility] Last Admin: 11/17/18 09:06 Dose: Not Given Metformin HCl (Glucophage) 500 mg PO BID[facility] Last Admin: 11/17/18 15:09 Dose: 500 mg Morphine Sulfate (Morphine) 2 mg SLOW IVP Q2H PRN PRN Reason: Mild Pain (1-3) Last Admin: 11/16/18 10:42 Dose: 2 mg Morphine Sulfate (Morphine) 4 mg SLOW IVP Q2H PRN PRN Reason: Moderate Pain (4-6) (Piroxicam [ (Piroxicam] 20 Mg)) 20 mg PO DAILY [facility] Rasagiline 0 each PO DAILY [facility] Ondansetron HCl (Zofran Odt) 4 mg PO Q6H PRN PRN Reason: Nausea/Vomiting Last Admin: 11/17/18 10:59 Dose: 4 mg Ondansetron HCl (Zofran) 4 mg IVP Q6H PRN PRN Reason: Nausea Pantoprazole Sodium (Protonix) 40 mg IVP DAILY [facility] Last Admin: 11/17/18 10:35 Dose: 40 mg Pantoprazole Sodium (Protonix) 40 mg PO DAILY [facility] Last Admin: 11/17/18 09:06 Dose: Not Given Polyethylene Glycol (Miralax) 17 gm PO DAILY [facility] Last Admin: 11/17/18 09:06 Dose: Not Given Pramipexole Dihydrochloride (Mirapex) 0.25 mg PO QPM [facility] Last Admin: 11/17/18 20:41 Dose: 0.25 mg Rasagiline (Azilect) 1 mg PO DAILY [facility] Last Admin: 11/17/18 09:06 Dose: Not Given Sodium Chloride (Flush - Normal Saline) 10 ml IVF PRN PRN PRN Reason: Saline Flush Tamsulosin HCl (Flomax) 0.4 mg PO BID [facility] Last Admin: 11/17/18 20:41 Dose: 0.4 mg Tramadol HCl (Ultram) 50 mg PO Q4H PRN PRN Reason: Moderate Pain (4-6) Tramadol HCl (Ultram) 100 mg PO Q6H PRN PRN Reason: Pain 7-10
--- NOTE | 2018-11-17 21:41 | PDOC.PN ---
- Subjective Encounter Start Date: 11/16/18 Encounter Start Time: 10:15 Subjective: pt up in bed denies any pain - Objective Vital Signs & Weight: Vital Signs (12 hours) Temp Pulse Resp BP Pulse Ox 11/17/18 19:29 97.3 F L 75 16 107/68 99 Weight Weight 218 lb 4 oz I&O: 11/16/18 11/17/18 11/18/18 06:59 06:59 06:59 Intake Total 480 1490 Balance 480 1490 Result Diagrams: 11/16/18 06:03 11/16/18 06:03 Additional Labs: Accuchecks 11/17/18 11/17/18 11/17/18 19:34 17:04 11:59 POC Glucose 142 H 136 H 130 H 11/17/18 05:50 POC Glucose 93 Phys Exam - Physical Examination Respiratory: no wheezing, no rales, no rhonchi, wheezing present, clear to auscultation bilateral Cardiovascular: RRR, no significant murmur, no rub, gallop, irregular Gastrointestinal: soft, non-tender, no distention, positive bowel sounds Musculoskeletal: no edema, pulses present, edema present Dx/Plan (1) Acute cholecystitis Code(s): K81.0 - ACUTE CHOLECYSTITIS Status: Acute (2) Parkinson disease Code(s): G20 - PARKINSON'S DISEASE Status: Acute (3) HTN (hypertension) Code(s): I10 - ESSENTIAL (PRIMARY) HYPERTENSION Status: Acute - Plan pt currently has no pain, he denies any cp/sob -: will restart pt's home meds -: surgery in am * . Review of Systems - Review of Systems Cardiovascular: negative: chest pain, palpitations, orthopnea, paroxysmal nocturnal dyspnea, edema, light headedness, other Gastrointestinal: negative: Nausea, Vomiting, Abdominal Pain, Diarrhea, Constipation, Melena, Hematochezia, Other Genitourinary: negative: Dysuria, Frequency, Incontinence, Hematuria, Retention , Other - Medications/Allergies Allergies/Adverse Reactions: Allergies Allergy/AdvReac Type Severity Reaction Status Date / Time meperidine [From Demerol] Allergy Verified 11/15/18 22:13 oxycodone [From OxyContin] Allergy Verified 11/15/18 22:13 Medications: Current Medications Acetaminophen (Tylenol) 1,000 mg PO Q6H PRN PRN Reason: Mild Pain (1-3) Last Admin: 11/17/18 10:59 Dose: 1,000 mg Albuterol/Ipratropium (Duoneb) 3 ml NEB Q4H PRN PRN Reason: Wheezing Aspirin (Ecotrin) 81 mg PO DAILY [facility] Last Admin: 11/17/18 09:05 Dose: Not Given Atorvastatin Calcium (Lipitor) 40 mg PO DAILY [facility] Last Admin: 11/17/18 09:05 Dose: Not Given Carbidopa/Levodopa (Sinemet 25-100) 3 tab PO TID [facility] Last Admin: 11/17/18 20:40 Dose: 3 tab Clonazepam (Klonopin) 2 mg PO HS [facility] Last Admin: 11/17/18 20:40 Dose: 2 mg Dextrose/Water (Dextrose 50%) 25 gm SLOW IVP PRN PRN PRN Reason: Hypoglycemia Dorzolamide/Timolol (Cosopt 2-0.5% Ophth Soln) 1 drop EA EYE BID [facility] Last Admin: 11/17/18 20:41 Dose: 1 drop Ezetimibe (Zetia) 10 mg PO DAILY [facility] Last Admin: 11/17/18 09:05 Dose: Not Given Famotidine (Pepcid) 20 mg PO BID [facility] Last Admin: 11/17/18 20:41 Dose: 20 mg Finasteride (Proscar) 5 mg PO DAILY [facility] Last Admin: 11/17/18 09:05 Dose: Not Given Furosemide (Lasix) 40 mg PO DAILY [facility] Last Admin: 11/17/18 09:06 Dose: Not Given Glucagon (Glucagon) 1 mg IM PRN PRN PRN Reason: Hypoglycemia Hydralazine HCl (Apresoline) 10 mg SLOW IVP Q4H PRN PRN Reason: SBP > 170 or DBP > 100 Dextrose/Water (D5w) 1,000 mls @ 0 mls/hr IV .Q0M PRN PRN Reason: Hypoglycemia Lactated Ringer's (Lactated Ringer's) 1,000 mls @ 100 mls/hr IV .Q10H [facility] Last Admin: 11/17/18 17:45 Dose: Not Given Levofloxacin 750 mg/ Device 150 mls @ 100 mls/hr IVPB Q24HR [facility] Last Admin: 11/17/18 10:35 Dose: 150 mls Metronidazole 500 mg/ Device 100 mls @ 100 mls/hr IVPB Q8HR [facility] Last Admin: 11/17/18 12:36 Dose: 100 mls Ibuprofen (Motrin) 600 mg PO Q6H PRN PRN Reason: Pain Insulin Human Lispro (Humalog) 0 units SC .MODERATE SLIDING SC PRN PRN Reason: Moderate Correctional Scale Ketorolac Tromethamine (Toradol) 15 mg IVP Q6H PRN PRN Reason: Pain Stop: 11/20/18 22:02 Lisinopril (Zestril) 10 mg PO DAILY [facility] Last Admin: 11/17/18 09:06 Dose: Not Given Metformin HCl (Glucophage) 500 mg PO BID[facility] Last Admin: 11/17/18 15:09 Dose: 500 mg Morphine Sulfate (Morphine) 2 mg SLOW IVP Q2H PRN PRN Reason: Mild Pain (1-3) Last Admin: 11/16/18 10:42 Dose: 2 mg Morphine Sulfate (Morphine) 4 mg SLOW IVP Q2H PRN PRN Reason: Moderate Pain (4-6) (Piroxicam [ (Piroxicam] 20 Mg)) 20 mg PO DAILY [facility] Rasagiline 0 each PO DAILY [facility] Ondansetron HCl (Zofran Odt) 4 mg PO Q6H PRN PRN Reason: Nausea/Vomiting Last Admin: 11/17/18 10:59 Dose: 4 mg Ondansetron HCl (Zofran) 4 mg IVP Q6H PRN PRN Reason: Nausea Pantoprazole Sodium (Protonix) 40 mg IVP DAILY [facility] Last Admin: 11/17/18 10:35 Dose: 40 mg Pantoprazole Sodium (Protonix) 40 mg PO DAILY [facility] Last Admin: 11/17/18 09:06 Dose: Not Given Polyethylene Glycol (Miralax) 17 gm PO DAILY [facility] Last Admin: 11/17/18 09:06 Dose: Not Given Pramipexole Dihydrochloride (Mirapex) 0.25 mg PO QPM [facility] Last Admin: 11/17/18 20:41 Dose: 0.25 mg Rasagiline (Azilect) 1 mg PO DAILY [facility] Last Admin: 11/17/18 09:06 Dose: Not Given Sodium Chloride (Flush - Normal Saline) 10 ml IVF PRN PRN PRN Reason: Saline Flush Tamsulosin HCl (Flomax) 0.4 mg PO BID [facility] Last Admin: 11/17/18 20:41 Dose: 0.4 mg Tramadol HCl (Ultram) 50 mg PO Q4H PRN PRN Reason: Moderate Pain (4-6) Tramadol HCl (Ultram) 100 mg PO Q6H PRN PRN Reason: Pain 7-10
[2018-11-18] MEDS: Lactated Ringer's 1,000 ML IV SCH (04:10)
[2018-11-18 05:02] LABS: #Eosinphils 0.2 thou/uL (0.0-0.7); #Lymphocytes 1.7 thou/uL (1.20-3.40); #Neutrophils 7.2 thou/uL (1.40-6.50); %Basophils 0.5 % (0.0-1.0); %Eosinophils 2.1 % (0.0-10.0); %Monocytes 9.8 % (0.0-10.0); %Neutrophils 70.7 % (42.0-75.0); Mean Corpuscular Hemoglobin 33.1 pg (27.0-31.0); Mean Platelet Volume 8.1 fL (7.4-10.4); Platelet Count 137 thou/uL (130-400); RBC Distribution Width 12.2 % (11.5-14.5); Red Blood Cell (RBC) Count 4.24 mill/uL (4.70-6.10); White Blood Cell (WBC) Count 10.2 thou/uL (4.8-10.8)
[2018-11-18 05:22] LABS: ALT (SGPT) 35 U/L (8-55); AST (SGOT) 62 U/L (5-34); Albumin 3.2 g/dL (3.4-4.8); Alkaline Phosphatase 182 U/L (40-150); Anion Gap 9 mmol/L (10-20); BUN (Urea Nitrogen) 19 mg/dL (8.4-25.7); Bilirubin, Total 3.4 mg/dL (0.2-1.2); Calc. Creatinine Clearance 108 mL/min (70-130); Carbon Dioxide 25 mmol/L (23-31); Chloride 105 mmol/L (98-107); Estimated GFR-MDRD 85; Globulin 2.7 g/dL (2.4-3.5); Glucose 105 mg/dL (83-110); Potassium 3.7 mmol/L (3.5-5.1); Protein, Total 5.9 g/dL (5.8-8.1); Sodium 135 mmol/L (136-145)
[2018-11-18] MEDS: metroNIDAZOLE 500 MG in Premix Bag 1 BAG IVPB SCH (05:54)
[2018-11-18] MEDS: Aspirin 81 mg Enteric Coated Tablet PO SCH (08:59)
[2018-11-18] MEDS: Atorvastatin Calcium 40 MG TAB PO SCH (09:00)
[2018-11-18] MEDS: metFORMIN 500 MG TAB PO SCH (09:00)
[2018-11-18] MEDS: Carbidopa/Levodopa 25-100 mg Tablet PO SCH (09:00)
[2018-11-18] MEDS: Finasteride 5 MG TAB PO SCH (09:00)
[2018-11-18] MEDS: Famotidine 20 MG TAB PO SCH (09:00)
[2018-11-18] MEDS: Furosemide 40 MG TAB PO SCH (09:00)
[2018-11-18] MEDS: Ezetimibe 10 MG TAB PO SCH (09:00)
[2018-11-18] MEDS ORDERED: Rasagiline Mesylate 0.5 MG TAB PO SCH (09:00)
[2018-11-18] MEDS: Pantoprazole 40 MG VIAL IVP SCH (09:01)
[2018-11-18] MEDS: Polyethylene Glycol 3350 17 GM Packet PO SCH (09:01)
[2018-11-18] MEDS: Lisinopril 10 MG TAB PO SCH (09:01)
[2018-11-18] MEDS: DorzolamidE/Timolol 2%/0.5% Ophth Soln 10 ml Bottle EA EYE SCH (09:02)
[2018-11-18] MEDS: Tamsulosin HCl 0.4 MG CAP PO SCH (09:04)
--- NOTE | 2018-11-18 11:23 | PRG ---
DATE OF SERVICE: 11/18/2018 SUBJECTIVE: Mr. Childs is doing well today. He is tolerating his diet. He has had minimal pain. Tylenol suffices for his pain needs. White count 10 and hemoglobin 14. His bilirubin has decreased from 4.7 to 3.4, as has his transaminases improved. His hemoglobin is stable at 14. OBJECTIVE: LUNGS: Clear to auscultation. CARDIAC: Irregularly irregular. ABDOMEN: Soft and nontender. Surgical wounds look good. Postoperative tenderness as expected. EXTREMITIES: Unremarkable. ASSESSMENT AND PLAN: Doing well after laparoscopic cholecystectomy and endoscopic retrograde cholangiopancreatography. He will be discharged home to resume his Eliquis on Wednesday night, tomorrow night and to resume his home medications otherwise. He will take Tylenol and ibuprofen as needed for pain. He states he does not need any other analgesics. Diet and activity as tolerated. No lifting restrictions. Follow up in my office in 2 to 3 weeks. Job ID: [id number]
[2018-11-18 11:43] VITALS: BP 124/76; TEMP 98
--- NOTE | 2018-11-18 19:04 | DIS ---
DATE OF ADMISSION: 11/15/2018 DATE OF DISCHARGE: 11/18/2018 DISCHARGE DIAGNOSES: Choledocholithiasis; cholecystitis; cholelithiasis; abnormal liver function test; chronic atrial fibrillation, on anticoagulation; coronary artery disease with atrial fibrillation; cellulitis, followed by Dr. Tapia; history of 4-vessel bypass in 1993; saw Dr. Tapia in May and his nurse practitioner/PA a week ago. Echocardiogram in May was normal. Cardiac symptomatology, none. PAST MEDICAL HISTORY: Significant for BPH, last colonoscopy in 2010, Parkinson's, type 2 diabetes mellitus, hypertension, elevated cholesterol, coronary artery disease, and atrial fibrillation, on Eliquis. He was recently started on metformin for slightly elevated glucose. PROCEDURE IN THIS HOSPITALIZATION: CT scan of the abdomen and pelvis, ultrasound of abdomen, laparoscopic cholecystectomy, and ERCP, Dr. Hamlin. DISCHARGE MEDICATIONS: As was taking at home. Resume Eliquis tomorrow night, 11/19/2018. DIET AND ACTIVITY: As tolerated. HISTORY: This is a 73-year-old male with upper abdominal complaints, presents from the emergency room, admitted. Medical service was consulted. Dr. Tapia was consulted. Dr. Snider saw the patient for Dr. Tapia and thought he was a good candidate for surgery without further evaluation. We were treating with antibiotics for two days and waiting for his Eliquis to wear off and then underwent the above procedures. Dr. Johnson saw him in consultation. Dr. Hamlin performed his ERCP when his cholangiograms were positive. The patient will follow up in my office in 2 to 3 weeks. Diet and activity as tolerated without restrictions. Job ID: [id number]
[2018-11-21] MEDS ORDERED: Ibuprofen 600 MG TAB PO PRN (04:00)
== END 2018-11-18 13:11 | disposition home or self-care (01) | DRG 418 ==
LOC: SCSER 17:43 → OBSVTOIN 21:48 → T4-B 21:48
PROVIDERS: ADMIT Specialist; ATTEND Specialist
PROC: 0FT44ZZ Resection of Gallbladder, Percutaneous Endoscopic Approach (ICD-10-PCS; principal; 2018-11-15)
PROC: BF13YZZ Fluoroscopy of Gallbladder and Bile Ducts using Other Contrast (ICD-10-PCS; 2018-11-15)
PROC: 0FC98ZZ Extirpation of Matter from Common Bile Duct, Via Natural or Artificial Opening Endoscopic (ICD-10-PCS; 2018-11-17)
DX: K80.62 Calculus of gallbladder and bile duct with acute cholecystitis without obstruction (principal); L03.90 Cellulitis, unspecified; E11.9 Type 2 diabetes mellitus without complications; I10 Essential (primary) hypertension; E78.00 Pure hypercholesterolemia, unspecified; I25.10 Atherosclerotic heart disease of native coronary artery without angina pectoris; G20 Parkinson's disease; E66.9 Obesity, unspecified; N40.0 Benign prostatic hyperplasia without lower urinary tract symptoms; E78.5 Hyperlipidemia, unspecified; K21.9 Gastro-esophageal reflux disease without esophagitis; H40.9 Unspecified glaucoma; I48.2 Chronic atrial fibrillation; Z96.653 Presence of artificial knee joint, bilateral; Z90.89 Acquired absence of other organs; Z95.1 Presence of aortocoronary bypass graft; Z90.49 Acquired absence of other specified parts of digestive tract; Z68.28 Body mass index [BMI] 28.0-28.9, adult; Z85.828 Personal history of other malignant neoplasm of skin
CPT/HCPCS: 36415; 36416; 47532; 71045; 74176; 76705; 80053; 81003; 83690; 83880; 84484; 85025; 85379; 88304; 93005; 96374; 96375; C9113; J0131; J0360; J0670; J1610; J1956; J2270; J2405; J3010; Q0162; Q9961

== ENCOUNTER 2023-12-20 10:25 | Outpatient (CLI) | payer MEDICARE, OTHER | END 2023-12-20 10:26 | disposition home or self-care (01) | LOC: SCSRAD 10:25 | PROVIDERS: ATTEND Nurse Practitioner Family | DX: M25.561 Pain in right knee (principal); M25.562 Pain in left knee; Z98.890 Other specified postprocedural states ==

== ENCOUNTER 2024-05-08 13:23 | Outpatient (CLI) | payer MEDICARE, OTHER | END 2024-05-08 13:24 | disposition home or self-care (01) | LOC: SCSMRI 13:23 | PROVIDERS: ATTEND Psychiatry & Neurology Neurology | DX: M48.061 Spinal stenosis, lumbar region without neurogenic claudication (principal); M47.816 Spondylosis without myelopathy or radiculopathy, lumbar region; Z98.890 Other specified postprocedural states | CPT/HCPCS: 72148 ==